=== PATIENT | male | born 1945 | race Caucasian/White ===

== ENCOUNTER → 2017-05-11 | Outpatient (CLI) | payer MEDICARE ==
[2016-07-08 17:48] VITALS: BP 168/76
== END | disposition home or self-care (01) ==
LOC: PCVCCLINIC 10:05
PROVIDERS: ATTEND Internal Medicine
DX: I25.10 Atherosclerotic heart disease of native coronary artery without angina pectoris (principal); I48.3 Typical atrial flutter; I25.5 Ischemic cardiomyopathy; I10 Essential (primary) hypertension; E78.5 Hyperlipidemia, unspecified; I65.23 Occlusion and stenosis of bilateral carotid arteries; J84.10 Pulmonary fibrosis, unspecified; K21.9 Gastro-esophageal reflux disease without esophagitis; I25.2 Old myocardial infarction; Z95.1 Presence of aortocoronary bypass graft; Z79.82 Long term (current) use of aspirin; Z79.899 Other long term (current) drug therapy; Z88.0 Allergy status to penicillin; Z87.891 Personal history of nicotine dependence
CPT/HCPCS: 36415; 80061; 93005; G0463

== ENCOUNTER → 2017-06-11 | Outpatient (CLI) | payer MEDICARE ==
[2016-07-08 17:48] VITALS: BP 168/76
--- NOTE | 2017-06-11 15:24 | PCVCIMAG ---
APPROVED REPORT Study performed: 06/11/2017 14:11:08 EXAM: Comprehensive 2D, Doppler, and color-flow Echocardiogram Patient Location: Echo lab Status: routine BSA: 2.23 HR: 70 bpmBP: 128/62 mmHg Rhythm: NSR Other Information Study Quality: Adequate Risk Factors: Cardiac Risk Factors: HTN Indications CAD Cardiomyopathy 2D Dimensions IVSd: 9.47 (7-11mm)LVOT Diam: 19.84 (18-24mm) LVDd: 49.09 mm PWd: 10.85 (7-11mm)Ascending Ao: 32.18 (22-36mm) LVDs: 32.66 (25-40mm) Left Atrium: 64.88 (27-40mm) Aortic Root: 29.37 mm LV Single Plane 4CH: 58.62 % LV Single Plane 2CH: 45.84 %Ortiz's LVEF: 52.23 % Biplane EF: 52.9 % Volumes Left Atrial Volume (Systole) Single Plane 4CH: 100.05 mLSingle Plane 2CH: 92.49 mL LA ESV Index: 44.00 mL/m2 Aortic Valve AoV Peak Humberto.: 1.39 m/s AO Peak Gr.: 7.69 mmHgLVOT Max P.92 mmHg LVOT Max V: 0.69 m/s CAROLINE Vmax: 1.55 cm2 Mitral Valve E/A Ratio: 3.6 MV Decel. Time: 189.09 ms MV E Max Humberto.: 1.21 m/s MV A Humberto.: 0.34 m/s IVRT: 48.44 ms TDI E/Lateral E': 9.31E/Medial E': 15.13 Medial E' Humberto.: 0.08 m/s Lateral E' Humberto.: 0.13 m/s Pulmonary Valve PV Peak Humberto.: 1.04 m/sPV Peak Gr.: 4.34 mmHg ID End Vmax: 2.29 m/s Pulmonary Vein P Vein S: 0.26 m/sP Vein A: 0.32 m/s P Vein D: 0.94 m/sP Vein A Dur.: 93.4 msec P Vein S/D Ratio: 0.28 Tricuspid Valve TR Peak Humberto.: 3.95 m/sRAP Estimate: 15.00 mmHg TR Peak Gr.: 62.35 mmHg PA Pressure: 72.00 mmHg Left Ventricle The left ventricle is normal size. There is normal LV segmental wall motion. Borderline concentric left ventricular hypertrophy. Left ventricular systolic function is normal. The left ventricular ejection fraction is within the normal range. LVEF is 50-55%. Right Ventricle Right ventricle is dilated. The right ventricular systolic function is normal. Atria Left atrium is moderately dilated. Right atrium is dilated. Aortic Valve The aortic valve trileaflet, moderately calcified. Mild aortic regurgitation. There is no aortic valvular stenosis. Mitral Valve There is mitral annular calcification. Moderate mitral regurgitation. No evidence of mitral valve stenosis. Tricuspid Valve The tricuspid valve is normal in structure. Mild tricuspid regurgitation. Pulmonary artery pressure is 70 mmHg. Pulmonic Valve The pulmonary valve is normal in structure. Moderate pulmonic regurgitation. Great Vessels The aortic root is normal in size. IVC is dilated and collapses <50% with inspiration. Pericardium There is no pericardial effusion. <Conclusion> Left ventricular systolic function is normal. There is normal LV segmental wall motion. LVEF 55%. Left atrium is moderately dilated. The aortic valve trileaflet, moderately calcified; no stenosis. No aortic valvular stenosis or insufficiency. There is mitral annular calcification. Moderate mitral insufficiency Pulmonary artery pressure of 70mmHg There is no pericardial effusion.
== END | disposition home or self-care (01) ==
LOC: PCVCIMAG 13:42
PROVIDERS: ATTEND Internal Medicine
DX: I08.3 Combined rheumatic disorders of mitral, aortic and tricuspid valves (principal); I25.10 Atherosclerotic heart disease of native coronary artery without angina pectoris; I48.3 Typical atrial flutter; I10 Essential (primary) hypertension; I65.23 Occlusion and stenosis of bilateral carotid arteries; E78.00 Pure hypercholesterolemia, unspecified; J84.10 Pulmonary fibrosis, unspecified; I42.9 Cardiomyopathy, unspecified; Z87.891 Personal history of nicotine dependence; Z79.899 Other long term (current) drug therapy; Z95.1 Presence of aortocoronary bypass graft
CPT/HCPCS: 93005; 93306; G0463